=== PATIENT | female | born 1990 | race Caucasian/White ===

== ENCOUNTER 2018-11-30 19:19 | Emergency (ER) | payer OTHER ==
[~2018-11-30] VITALS: Ht 170.2 cm; Wt 72.6 kg
[2018-12-01] MEDS ORDERED: MACROBID 100 M100 MG PO (03:01)
== END 2018-12-01 03:11 | disposition home or self-care (01) ==
LOC: ER 19:19
DX: O26.891 Other specified pregnancy related conditions, first trimester (principal); O34.81 Maternal care for other abnormalities of pelvic organs, first trimester; N83.291 Other ovarian cyst, right side; R10.2 Pelvic and perineal pain; Z34.81 Encounter for supervision of other normal pregnancy, first trimester

== ENCOUNTER 2019-04-14 11:38 | Outpatient (CLI) | payer OTHER ==
[~2019-04-14 11:38] MED LIST: MACROBID 100 M100 MG PO
== END 2019-04-14 12:23 | disposition home or self-care (01) ==
LOC: NST 11:38
DX: Z34.83 Encounter for supervision of other normal pregnancy, third trimester (principal)

== ENCOUNTER 2019-07-08 14:30 | Inpatient (IN) | payer OTHER ==
[~2019-07-08] VITALS: Ht 170.2 cm; Wt 81.6 kg
[2019-08-03] MEDS ORDERED: PRENATAL + DHA1 EAC1 PO (10:35)
== END 2019-08-05 13:11 | disposition home or self-care (01) | DRG 807 ==
LOC: OB/GYN 08-03 06:31 → LDR 08-03 06:31 → OB/GYN 08-03 13:56
PROVIDERS: ADMIT Obstetrics & Gynecology
PROC: 10E0XZZ Delivery of Products of Conception, External Approach (ICD-10-PCS; principal; 2019-08-03)
PROC: 0KQM0ZZ Repair Perineum Muscle, Open Approach (ICD-10-PCS; 2019-08-03)
PROC: 3E033VJ Introduction of Other Hormone into Peripheral Vein, Percutaneous Approach (ICD-10-PCS; 2019-08-03)
PROC: 4A1HXCZ Monitoring of Products of Conception, Cardiac Rate, External Approach (ICD-10-PCS; 2019-08-03)
DX: O70.1 Second degree perineal laceration during delivery (principal); Z37.0 Single live birth; Z3A.40 40 weeks gestation of pregnancy

== ENCOUNTER 2019-07-29 14:25 | Outpatient (CLI) | payer OTHER | END 2019-07-29 18:51 | disposition home or self-care (01) | LOC: NST 14:25 | DX: Z34.83 Encounter for supervision of other normal pregnancy, third trimester (principal) ==